=== PATIENT | female | born 1965 | race Caucasian/White ===

== ENCOUNTER 2018-01-30 08:38 | Day surgery (SDC) | payer BC, MEDICARE ==
[~2018-01-30 08:38] MED LIST: Lactated Ringers 1,000 ML IV SCH
[2018-01-30] MEDS ORDERED: Ondansetron 4 MG/2 ML SDV IVPUSH ONE (09:34)
--- NOTE | 2018-01-30 09:46 | PCM.PREANE ---
Preanesthetic Assessment - Anesthesia/Transfusion/Family Hx Anesthesia History: Prior Anesthesia Reaction Other Type of Anesthesia Reaction Comment: awakened during hysterectomy Family History of Anesthesia Reaction: No Transfusion History: No Prior Transfusion(s) - Review of Systems General: No Symptoms Pulmonary: No Symptoms Cardiovascular: No Symptoms Gastrointestinal: Abdominal Pain Neurological: Other (crps) Other: Reports: Anxiety - Physical Assessment NPO Status Date: 01/29/18 O2 Sat by Pulse Oximetry: 98 Respiratory Rate: 16 Vital Signs: Last Vital Signs Temp 36.5 C 01/30/18 09:15 Pulse 96 01/30/18 09:15 Resp 16 01/30/18 09:15 BP 134/66 01/30/18 09:15 Pulse Ox 98 01/30/18 09:15 Height: 1.68 m Weight: 63.503 kg ASA Class: 2 Mental Status: Alert & Oriented x3 Airway Class: Mallampati = 1 Dentition: Reports: Normal Dentition ROM/Head Extension: Full Lungs: Clear to Auscultation, Normal Respiratory Effort Cardiovascular: Regular Rate, Regular Rhythm - Allergies Allergies/Adverse Reactions: Allergies Allergy/AdvReac Type Severity Reaction Status Date / Time cyclobenzaprine Allergy Hives Verified 01/26/18 14:39 [From Flexeril] diphenhydramine Allergy Burning Verified 01/26/18 14:39 [From Benadryl] hydromorphone [From Dilaudid] Allergy Difficulty Verified 01/26/18 14:39 Breathing morphine Allergy Difficulty Verified 01/26/18 14:39 Breathing seafood Allergy Airway Uncoded 01/26/18 14:39 Tightness - Anesthesia Plan Pre-Op Medication Ordered: Other (took phenergan at home this am for migraine, zofram 4 mg given in pre op holding for nausea) - Acknowledgements Anesthesia Type Planned: MAC Pt an Appropriate Candidate for the Planned Anesthesia: Yes Alternatives and Risks of Anesthesia Discussed w Pt/Guardian: Yes Pt/Guardian Understands and Agrees with Anesthesia Plan: Yes PreAnesthesia Questionnaire HEENT History: Reports: Other (See Below) Other HEENT History: wears glasses/contacts Gastrointestinal History: Reports: GERD Genitourinary History: Reports: None Musculoskeletal History: Reports: Other (See Below) Other Musculoskeletal History: Complex Regional Pain Syndrome Right Foot Neurological History: Reports: Concussion, Migraines, Other (See Below) Other Neuro History: Complex Regional Pain Syndrome- right foot Hx of motion sickness Psychiatric History: Reports: Anxiety, Depression, PTSD - Past Surgical History GI Surgical History: Reports: Appendectomy, Cholecystectomy, Hernia, Inguinal Female Surgical History: Reports: Hysterectomy, Salpingo-Oophorectomy Neurological Surgical History: Reports: Other (See Below) Other Neurological Surgeries/Procedures: Nerve Stimulator inserted and removed Musculoskeletal Surgical History: Reports: None - SUBSTANCE USE Smoking Status *Q: Never Smoker Recreational Drug Use History: No - HOME MEDS Home Medications: Home Meds Diazepam [Valium] 2 mg PO TID PRN 01/26/18 [History] Escitalopram Oxalate 10 mg PO QAM 01/26/18 [History] Lansoprazole [Prevacid] 30 mg PO DAILY 01/26/18 [History] Promethazine [Phenergan] 25 mg PO ASDIRECTED PRN 01/26/18 [History] lamoTRIgine 25 mg PO QAM 01/26/18 [History] oxyCODONE HCl [Oxycontin] 20 mg PO QID 01/26/18 [History] - CURRENT (IN HOUSE) MEDS Current Meds: Current Medications Lactated Ringer's (Ringers, Lactated) 1,000 mls @ 125 mls/hr IV ASDIRECTED [facility] Last Admin: 01/30/18 09:35 Dose: 125 mls/hr Discontinued Medications Ondansetron HCl (Zofran) 4 mg IVPUSH ONETIME ONE Stop: 01/30/18 09:35 Last Admin: 01/30/18 09:42 Dose: 4 mg
[2018-01-30] MEDS ORDERED: Propofol 200 MG/20 ML SDV ONE ×2 (10:45→11:06)
[2018-01-30] MEDS ORDERED: fentaNYL 100 MCG/2 ML SDV ONE (10:47)
[2018-01-30] MEDS ORDERED: Midazolam 1 MG/ML 2 ML SDV ONE (10:48)
--- NOTE | 2018-01-30 11:34 | PCM.OPNOTE ---
- General Post-Op/Procedure Note Date of Surgery/Procedure: 01/30/18 Operative Procedure(s): colonoscopy w bx Findings: see dict [id number] Pre Op Diagnosis: scrn colonoscopy Post-Op Diagnosis: colitis Anesthesia Technique: Moderate Sedation Primary Surgeon: Pool Villegas Pathology: inflamation bx at 85 cm, and 20 cm when scope came out; 20cm appeared ulcer Complications: None Condition: Good
--- NOTE | 2018-01-30 12:11 | OR ---
SURGEON: Pool Villegas MD DATE OF PROCEDURE: 01/30/2018 PREOPERATIVE DIAGNOSIS: Screening colonoscopy. POSTOPERATIVE DIAGNOSIS: Colitis. PROCEDURE PERFORMED: Colonoscopy with biopsy. DESCRIPTION OF PROCEDURE: The patient was taken to the endoscopy room. A time out was called, patient identified, and procedure identified. Diprivan was then administrated. Patient went from awake to sleep, hearing doctor talking or door closing is normal. Perineum inspection and digital examination were then performed. A well- lubricated colonoscope was gently inserted through the rectum, advanced past the rectosigmoid junction, the descending colon, splenic flexure, transverse colon, hepatic flexure, ascending colon, arrived to the cecum. Cecum was identified as dictated in the finding. Then the scope was carefully withdrawn while attention was paid to the mucosal surface for any abnormality. Air will be sucked out during the scope withdrawal. At the rectum, retroflexed to examine any rectal diseases, fistula or hemorrhoids. During mucosal examination, abnormality or polyp was noted; picture taken and biopsy performed. Patient tolerated procedure well. There were no intraoperative complications, and Dr. Villegas was present throughout the whole procedure. FINDINGS: 1. The patient was easily sedated with [employer] and Diprivan. The patient was soundly snoring. 2. The patient's bowel prep was average with moderate amount of liquid stool, no semi formed stool. 3. The patient's colon was torturous, required several maneuvers and put the patient on the back in order to get to the cecum. Cecum was indicated by ileocecal fold, one-to-one indentation, light emittance, appendiceal orifice. Mucosa examined upon scope pulling out with some irrigation. The patient does not have diverticulosis, polyp, mass, or growth. The patient does have mild inflammation at around 90; it was randomly biopsied, that was probably at the hepatic flexure, and also more inflammation at 20 cm, almost like a pseudomembranous colitis, also randomly biopsied. The patient has mild internal hemorrhoids and no external hemorrhoids. The patient would benefit from a repeat colonoscopy in 10 years from today or likely the patient probably would have to repeat the colonoscopy in 1 year to assess the colitis or if clinically indicated early otherwise. As always, thank you for your kind referral. FARZANEH / STEW /[id number]
--- NOTE | 2018-01-30 14:43 | PCM.POSTAN ---
POST ANESTHESIA ASSESSMENT - MENTAL STATUS Mental Status: Alert, Oriented - RESPIRATORY Respiratory Status: Respiratory Rate WNL, Airway Patent - CARDIOVASCULAR CV Status: Pulse Rate WNL, Blood Pressure Stable - GASTROINTESTINAL GI Status: No Symptoms - POST OP HYDRATION Hydration Status: Adequate & Stable
--- NOTE | 2018-01-30 14:43 | PCM48HPAN ---
Post Anesthesia Note - EVALUATION WITHIN 48HRS OF ANESTHETIC Vital Signs in Normal Range: Yes Patient Participated in Evaluation: Yes Respiratory Function Stable: Yes Airway Patent: Yes Cardiovascular Function Stable: Yes Hydration Status Stable: Yes Pain Control Satisfactory: Yes Nausea and Vomiting Control Satisfactory: Yes Mental Status Recovered: Yes Resp Rate: 16
== END 2018-01-30 12:15 | disposition home or self-care (01) ==
LOC: MW.SDS 08:38
PROVIDERS: ATTEND Surgery
DX: Z12.11 Encounter for screening for malignant neoplasm of colon (principal); K52.9 Noninfective gastroenteritis and colitis, unspecified; K64.8 Other hemorrhoids; Z88.0 Allergy status to penicillin; Z98.890 Other specified postprocedural states; Z88.5 Allergy status to narcotic agent; Z88.8 Allergy status to other drugs, medicaments and biological substances; Z91.013 Allergy to seafood; Z79.899 Other long term (current) drug therapy
CPT/HCPCS: 45380; J2250; J2405; J2704; J3010; J7120; 88305

== ENCOUNTER 2019-01-24 16:40 | Emergency (ER) | payer BC, MEDICARE ==
--- NOTE | 2019-01-24 17:00 | EDM.PDOC ---
ED HPI GENERAL MEDICAL PROBLEM - General Chief Complaint: Lower Extremity Injury/Pain Stated Complaint: LT THIGH PAIN Time Seen by Provider: 01/24/19 17:00 Source of Information: Reports: Patient History Limitations: Reports: No Limitations - History of Present Illness INITIAL COMMENTS - FREE TEXT/NARRATIVE: HISTORY AND PHYSICAL: History of present illness: Patient is a 53-year-old female presents to the ED with complaint of left leg pain. He states about 1 week ago she was lifting something and felt a pain in her back. She states that she was having radiation of pain down her lateral left leg. She was seen by her primary care provider and had an MRI done which showed some inflammation but no disc herniation. She states she took a steroid and has been taking her oxycodone for pain. She states in the past couple of days she has been having pain and burning on the front and medial part of the left upper leg. She denies any saddle anesthesia, lower extremity weakness, bowel or bladder incontinence. She denies new injury or trauma. Review of systems: As per history of present illness and below otherwise all systems reviewed and negative. Past medical history: As per history of present illness and as reviewed below otherwise noncontributory. Surgical history: As per history of present illness and as reviewed below otherwise noncontributory. Social history: No reported history of drug or alcohol abuse. Family history: As per history of present illness and as reviewed below otherwise noncontributory. Physical exam: General: Patient sitting comfortably in no acute distress and nontoxic appearing HEENT: Atraumatic, normocephalic, pupils reactive, negative for conjunctival pallor or scleral icterus, mucous membranes moist, throat clear, neck supple, nontender, trachea midline. No meningeal signs. Lungs: Clear to auscultation, breath sounds equal bilaterally, chest nontender. Heart: S1S2, regular, negative for clicks, rubs, or overt murmur. Abdomen: Soft, nondistended, nontender. Negative for masses or hepatosplenomegaly. Negative for costovertebral tenderness. No rigidity, rebound , guarding. Pelvis: Stable nontender. Genitourinary: Deferred. Rectal: Deferred. Extremities: Pain to palpation of the left anterior and medial aspect part of the upper leg. Atraumatic, negative for cords or calf pain. Neurovascular unremarkable. Neuro: Awake, alert, oriented. Cranial nerves II through XII unremarkable. Cerebellum unremarkable. Motor and sensory unremarkable throughout. Exam nonfocal. Notes: Diagnostics: Venous doppler US left LE extremity Therapeutics: Toradol 60mg IM Prescriptions: Ketorolac 10mg Impression: Left leg pain, lumbar radiculopathy Plan: Take medication as instructed Follow up with primary care provider Return to ED as needed as discussed Definitive disposition and diagnosis as appropriate pending reevaluation and review of above. left thigh Pain Score (Numeric/FACES): 9 - Related Data Allergies Allergy/AdvReac Type Severity Reaction Status Date / Time cyclobenzaprine Allergy Hives Verified 05/05/18 12:01 [From Flexeril] diphenhydramine Allergy Burning Verified 05/05/18 12:01 [From Benadryl] hydromorphone [From Dilaudid] Allergy Difficulty Verified 05/05/18 12:01 Breathing morphine Allergy Difficulty Verified 05/05/18 12:01 Breathing seafood Allergy Airway Uncoded 05/05/18 12:01 Tightness Home Meds: Home Meds Diazepam [Valium] 2 mg PO TID PRN 01/26/18 [History] Escitalopram Oxalate 10 mg PO QAM 01/26/18 [History] Lansoprazole [Prevacid] 30 mg PO DAILY 01/26/18 [History] Promethazine [Phenergan] 25 mg PO ASDIRECTED PRN 01/26/18 [History] lamoTRIgine 25 mg PO QAM 01/26/18 [History] oxyCODONE HCl [Oxycontin] 20 mg PO QID 01/26/18 [History] Diclofenac Sodium [Voltaren] 75 mg PO BID 01/24/19 [History] Past Medical History HEENT History: Reports: Other (See Below) Other HEENT History: wears glasses/contacts Cardiovascular History: Reports: None Respiratory History: Reports: None Gastrointestinal History: Reports: GERD, Helicobacter Pylori Genitourinary History: Reports: None CLINICAL REHAB SPECIALIST History: Reports: None Musculoskeletal History: Reports: Fracture, Other (See Below) Other Musculoskeletal History: Complex Regional Pain Syndrome Right Foot, hx of fx femur as a child Neurological History: Reports: Concussion, Headaches, Chronic, Migraines, Other (See Below) Other Neuro History: Complex Regional Pain Syndrome- right foot Hx of motion sickness Psychiatric History: Reports: Anxiety, Depression, PTSD Endocrine/Metabolic History: Reports: None Hematologic History: Reports: None Immunologic History: Reports: None Oncologic (Cancer) History: Reports: None Dermatologic History: Reports: Psoriasis - Past Surgical History Head Surgeries/Procedures: Reports: None GI Surgical History: Reports: Appendectomy, Cholecystectomy, Colonoscopy, Hernia , Inguinal Female Surgical History: Reports: Hysterectomy, Salpingo-Oophorectomy Neurological Surgical History: Reports: Other (See Below) Other Neurological Surgeries/Procedures: Nerve Stimulator inserted x3 and removed Musculoskeletal Surgical History: Reports: None Review of Systems - Review of Systems Review Of Systems: ROS reveals no pertinent complaints other than HPI. ED EXAM, GENERAL - Physical Exam Exam: See Below (See dictation) Course - Vital Signs Last Recorded V/S: Last Vital Signs Temp 96.7 F 01/24/19 19:00 Pulse 66 01/24/19 19:00 Resp 16 01/24/19 19:00 BP 135/57 L 01/24/19 19:00 Pulse Ox 97 01/24/19 19:00 - Orders/Labs/Meds Meds: Medications Discontinued Medications Generic Name Dose Route Start Last Admin Trade Name Krystin PRN Reason Stop Dose Admin Ketorolac Tromethamine 60 mg 01/24/19 17:09 01/24/19 17:31 Toradol IM 01/24/19 17:10 60 mg ONETIME ONE Administration Departure - Departure Time of Disposition: 21:32 Disposition: Home, Self-Care 01 Condition: Good Clinical Impression: Lumbar radiculopathy - Discharge Information Instructions: Muscle Strain, [id number] Referrals: Paris Barros DO [Primary Care Provider] - Forms: ED Department Discharge Additional Instructions: The following information is given to patients seen in the emergency department who are being discharged to home. This information is to outline your options for follow-up care. We provide all patients seen in our emergency department with a follow-up referral. The need for follow-up, as well as the timing and circumstances, are variable depending upon the specifics of your emergency department visit. If you don't have a primary care physician on staff, we will provide you with a referral. We always advise you to contact your personal physician following an emergency department visit to inform them of the circumstance of the visit and for follow-up with them and/or the need for any referrals to a consulting specialist. The emergency department will also refer you to a specialist when appropriate. This referral assures that you have the opportunity for follow-up care with a specialist. All of these measure are taken in an effort to provide you with optimal care, which includes your follow-up. Under all circumstances we always encourage you to contact your private physician who remains a resource for coordinating your care. When calling for follow-up care, please make the office aware that this follow-up is from your recent emergency room visit. If for any reason you are refused follow-up, please contact the [facility] Emergency Department at and asked to speak to the emergency department charge nurse. [facility] [address] [place] [address] [id number] [address] [address] Take medication as instructed Follow up with primary care provider Return to ED as needed as discussed
[2019-01-24] MEDS ORDERED: Ketorolac 60 MG/2 ML SDV IM ONE (17:09)
--- NOTE | 2019-01-24 18:33 | US ---
INDICATION: Left thigh pain TECHNIQUE: Ultrasound venous duplex lower left extremity. Compression venous exam was performed using wiggins-scale, color Doppler, and spectral Doppler analysis. COMPARISON: None FINDINGS: Sonographic imaging demonstrates the left common femoral, deep femoral, superficial femoral, popliteal, posterior tibial and greater saphenous veins to be fully compressible with normal color Doppler blood flow. No sonographic abnormalities in the left thigh in the area of clinical concern. IMPRESSION: Normal left lower extremity venous ultrasound, no sign of deep venous thrombosis. Dictated by Saeid De Guzman MD @ 01/24/2019 6:31:26 PM Dictated by: Saeid De Guzman MD @ 01/24/2019 18:31:35 (Electronically Signed)
== END 2019-01-24 19:01 | disposition home or self-care (01) ==
LOC: MW.ED 16:40
DX: M54.16 Radiculopathy, lumbar region (principal); F41.9 Anxiety disorder, unspecified; F32.9 Major depressive disorder, single episode, unspecified; Z88.5 Allergy status to narcotic agent; Z88.8 Allergy status to other drugs, medicaments and biological substances; Z91.013 Allergy to seafood
CPT/HCPCS: 93971; 96372; 99283; J1885; 99284